=== PATIENT | male | born 1985 | race Caucasian/White ===

== ENCOUNTER 2022-11-14 20:02 | Emergency (ER) | payer BC, OTHER ==
[2022-11-14 20:09] VITALS: TEMP 98.2; BMI 36.0
[2022-11-14 21:51] LABS: BASO % 0.3 % (0-2.0); EOS % 1.4 % (0-4.5); HEMATOCRIT 42.7 % (35.4-49); LYMPH % 35.3 % (8-40); MCH 33.7 pg (25.7-33.7); MCHC 35.2 g/dl (32.0-35.9); MEAN CELL VOLUME 95.6 fl (80-96); MEAN PLT VOLUME 7.9 fl (7.5-11.1); MONO % 10.7 % (3.8-10.2); NEUT % 52.3 % (42.8-82.8); PLATELET COUNT 221 10^3/uL (134-434); RBC 4.47 M/mm3 (4.00-5.60); WHITE BLOOD COUNT 8.3 K/mm3 (4.0-10.0)
[2022-11-14 22:19] LABS: POTASSIUM 4.1 mmol/L (3.5-5.1)
[2022-11-14 22:21] LABS: CALCIUM 8.6 mg/dL (8.5-10.1)
[2022-11-14 22:22] LABS: ALBUMIN 3.8 g/dl (3.4-5.0); BLOOD UREA NITROGEN 19.3 mg/dL (7-18)
[2022-11-14 22:25] LABS: CREATININE 1.1 mg/dL (0.55-1.3)
[2022-11-14 22:27] LABS: BILIRUBIN,TOTAL 0.4 mg/dL (0.2-1); TOT PROT 7.6 g/dl (6.4-8.2)
[2022-11-14 23:08] VITALS: BP 130/85; PULSE 80; RESP 19
== END 2022-11-14 23:08 | disposition home or self-care (01) ==
LOC: JER 20:02
DX: K92.1 Melena (principal); R19.7 Diarrhea, unspecified
CPT/HCPCS: 36415; 80053; 82272; 85025; 99283-25